=== PATIENT | female | born 2000 | race Caucasian/White ===

== ENCOUNTER 2023-05-25 10:31 | Emergency (ER) | payer OTHER ==
[~2023-05-25] VITALS: Ht 167.6 cm; Wt 68.2 kg
[2023-05-25 10:39] VITALS: TEMP 98.2
[2023-05-25] MEDS ORDERED: DIVA-111 PO (10:41)
[2023-05-25] MEDS ORDERED: SERT-439 PO (10:41)
[2023-05-25 10:49] LABS: COVID AG,FIA SOURCE NASAL SWAB
[2023-05-25 11:09] LABS: RAPID GROUP A STREP POSITIVE (NEGATIVE)
[2023-05-25 11:14] LABS: SARS-COV2 (COVID) ANTIGEN,FIA Negative (Negative)
[2023-05-25 11:15] LABS: INFLUENZA TYPE A NEGATIVE FOR TYPE A (NEGATIVE); INFLUENZA TYPE B NEGATIVE FOR TYPE B (NEGATIVE)
[2023-05-25] MEDS ORDERED: CEPH-558 PO (12:25)
[2023-05-25] MEDS ORDERED: DEXAMETHASONE 4 MG TABLET PO ONE (12:30)
[2023-05-25 12:40] VITALS: BP 138/99; PULSE 98; RESP 18
== END 2023-05-25 12:42 | disposition home or self-care (01) ==
LOC: EMS 10:35
DX: J02.0 Streptococcal pharyngitis (principal); L73.9 Follicular disorder, unspecified; F41.9 Anxiety disorder, unspecified; F32.A Depression, unspecified; Z20.822 Contact with and (suspected) exposure to COVID-19
CPT/HCPCS: 99283; 87426; 87430; 87804; J8540